=== PATIENT | female | born 1975 ===

== ENCOUNTER 2022-04-27 10:45 | Inpatient (IN) | payer OTHER ==
[~2022-04-27] VITALS: Ht 157.5 cm; Wt 63.5 kg
[2022-04-27] MEDS ORDERED: VITAMIN D PO (13:09)
[2022-04-27] MEDS ORDERED: MULTIVITAMINS1 EAC4 PO (13:10)
[2022-04-28] MEDS ORDERED: VITAMIN D3125 MC1 (08:13)
== END 2022-04-29 10:11 | disposition home or self-care (01) | DRG 915 ==
LOC: O/R 04-28 06:02 → SURH 04-28 08:30 → OB/GYN 04-28 15:04
PROVIDERS: ADMIT Obstetrics & Gynecology Gynecologic Oncology; ATTEND Obstetrics & Gynecology Gynecologic Oncology
PROC: 3E0F7GC Introduction of Other Therapeutic Substance into Respiratory Tract, Via Natural or Artificial Opening (ICD-10-PCS; 2022-04-28)
PROC: 5A1935Z Respiratory Ventilation, Less than 24 Consecutive Hours (ICD-10-PCS; 2022-04-28)
PROC: 0BH17EZ Insertion of Endotracheal Airway into Trachea, Via Natural or Artificial Opening (ICD-10-PCS; 2022-04-28)
PROC: 4A033R1 Measurement of Arterial Saturation, Peripheral, Percutaneous Approach (ICD-10-PCS; principal; 2022-04-28 08:30)
DX: T88.6XXA Anaphylactic reaction due to adverse effect of correct drug or medicament properly administered, initial encounter (principal); J95.821 Acute postprocedural respiratory failure; T88.2XXA Shock due to anesthesia, initial encounter; T41.295A Adverse effect of other general anesthetics, initial encounter; Y92.234 Operating room of hospital as the place of occurrence of the external cause; Z53.09 Procedure and treatment not carried out because of other contraindication; Z20.822 Contact with and (suspected) exposure to COVID-19